=== PATIENT | female | born 1985 | race African-American/Black ===

== ENCOUNTER 2016-05-04 12:00 | Emergency (ER) | payer OTHER, MEDICAID ==
[~2016-05-04] VITALS: Ht 167.6 cm; Wt 111.0 kg
[~2016-05-04 12:00] MED LIST: Docusate Sod/Senna PO; IBUP600 PO; IRON325T2 PO; PERC5TAB12 PO; PREN1TAB30
[2016-05-04 12:07] VITALS: BP 114/76; PULSE 57; RESP 16; TEMP 99.5; O2SAT 97
[2016-05-04] MEDS ORDERED: ROBA750T PO (12:41)
[2016-05-04] MEDS ORDERED: NAPR500T PO (12:41)
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
[2016-05-04] MEDS ORDERED: ORPHENADRINE INJ 60 MG/2 ML AMP IM ONE (12:45)
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
== END 2016-05-04 13:35 | disposition home or self-care (01) ==
LOC: PHEFT 12:00
DX: S29.019A Strain of muscle and tendon of unspecified wall of thorax, initial encounter (principal); M62.838 Other muscle spasm
CPT/HCPCS: 72072; 96372; 99283; J2360